=== PATIENT | male | born 1970 | race Caucasian/White ===

== ENCOUNTER 2023-03-20 17:11 | Observation (INO) | payer SELFPAY ==
[2023-03-20] MEDS ORDERED: Furosemide 40 MG/4 ML VIAL ONE (17:42)
[2023-03-20] MEDS ORDERED: Aspirin Chewable 81 MG TAB ONE (17:43)
[2023-03-20] MEDS ORDERED: Cefepime 2 GM VIAL ONE (17:47)
[2023-03-20 18:18] LABS: #Basophils 0.1 10x3/uL (0.0-0.2); #Eosinphils 0.5 10x3/uL (0.0-0.5); #Monocytes 0.8 10x3/uL (0.0-1.1); %Basophils 0.7 % (0.0-2.0); %Eosinophils 6.6 % (0.0-6.0); %Lymphocytes 26.1 % (18.0-47.0); %Monocytes 10.5 % (0.0-10.0); %Neutrophils 55.7 % (40.0-75.0); Hematocrit 44.4 % (38.8-50.0); Hemoglobin 14.2 g/dL (13.5-17.5); Mean Corpuscular Hemoglobin 27.6 pg (27.0-33.0); Mean Corpuscular Volume 86.2 fl (81.2-95.1); Mean Platelet Volume 10.9 fl (7.4-10.4); Platelet Count 246 10x3/uL (150-450); RBC Distribution Width 14.4 % (11.5-14.5); Red Blood Cell (RBC) Count 5.15 10x6/uL (4.32-5.72); White Blood Cell (WBC) Count 7.1 10x3/uL (3.5-10.5)
[2023-03-20 18:27] LABS: ALT (SGPT) 50 U/L (8-55); AST (SGOT) 33 U/L (5-34); Alkaline Phosphatase 84 U/L (40-110); Anion Gap 16 mmol/L (10-20); BUN (Urea Nitrogen) 7 mg/dL (8.4-25.7); Bilirubin, Total 0.3 mg/dL (0.2-1.2); Calc. Creatinine Clearance 0 mL/min (70-130); Calcium 8.4 mg/dL (7.8-10.44); Carbon Dioxide 24 mmol/L (22-29); Chloride 107 mmol/L (98-107); Estimated GFR 106; Globulin 2.3 g/dL (2.4-3.5); Glucose 105 mg/dL (70-105); Lipase 25 U/L (8-78); Potassium 4.6 mmol/L (3.5-5.1); Protein, Total 6.3 g/dL (6.0-8.3); Sodium 142 mmol/L (136-145)
[2023-03-20 18:33] LABS: Troponin I Less than 0.010 ng/mL (< 0.028)
[2023-03-20 18:47] LABS: Bilirubin Neg (Negative); Blood, Urine Negative (Negative); Clarity Clear (Clear); Glucose, Urine (Dipstick) Normal (Negative); Ketone, Urine Negative (Negative); Leukocyte Negative (Negative); Nitrite Negative (Negative); Protein, Urine (Dipstick) Negative (Neg-Trace); Specific Gravity, Urine 1.015 (1.005-1.030); Urobilinogen Normal mg/dL (Less than 2)
[2023-03-20 19:00] LABS: Bacteria/HPF Rare-Few HPF (None Seen); CAUTI Indications for Culture Immunosuppressed; RBC/HPF 0-3 HPF (0-3); Squamous Epithelial None Seen HPF (0-3)
[2023-03-20 19:01] LABS: Urine Culture Reflex Yes Yes; WBC/HPF 0-3 HPF (0-3)
[2023-03-20] MEDS ORDERED: Vancomycin 1 GM VIAL ONE ×2 (19:18→19:25)
[2023-03-20] MEDS ORDERED: HYDROcodone/Acetaminophen 5/325 mg Tablet PO PRN ×2 (20:03)
[2023-03-20] MEDS ORDERED: Acetaminophen 325 MG TAB PO PRN (20:03)
[2023-03-20] MEDS ORDERED: Ondansetron ODT 4 MG TAB PO PRN (20:03)
[2023-03-20] MEDS ORDERED: Hydrocortisone 1% Cream 30 GM TUBE TOP PRN (20:07)
[2023-03-21 04:21] LABS: #Basophils 0.1 10x3/uL (0.0-0.2); #Eosinphils 0.5 10x3/uL (0.0-0.5); #Monocytes 0.8 10x3/uL (0.0-1.1); #Neutrophils 5.6 10x3/uL (1.5-8.4); %Basophils 0.7 % (0.0-2.0); %Eosinophils 5.6 % (0.0-6.0); %Lymphocytes 17.8 % (18.0-47.0); %Monocytes 9.6 % (0.0-10.0); %Neutrophils 65.9 % (40.0-75.0); Hematocrit 44.5 % (38.8-50.0); Hemoglobin 14.1 g/dL (13.5-17.5); Mean Corpuscular HGB CONC 31.7 g/dL (32.0-36.0); Mean Corpuscular Hemoglobin 27.2 pg (27.0-33.0); Mean Corpuscular Volume 85.9 fl (81.2-95.1); Mean Platelet Volume 10.8 fl (7.4-10.4); Platelet Count 243 10x3/uL (150-450); RBC Distribution Width 14.4 % (11.5-14.5); Red Blood Cell (RBC) Count 5.18 10x6/uL (4.32-5.72); White Blood Cell (WBC) Count 8.5 10x3/uL (3.5-10.5)
[2023-03-21 04:27] LABS: Anion Gap 15 mmol/L (10-20); BUN (Urea Nitrogen) 8 mg/dL (8.4-25.7); CRP (Inflammatory) 3.06 mg/dL (= or < 0.5); Calc. Creatinine Clearance 199 mL/min (70-130); Carbon Dioxide 28 mmol/L (22-29); Chloride 103 mmol/L (98-107); Estimated GFR 103; Glucose 120 mg/dL (70-105); Sodium 142 mmol/L (136-145)
[2023-03-21] MEDS ORDERED: Cefepime 2 GM VIAL ONE (05:47)
[2023-03-21] MEDS: Cefepime 2 GM in Sodium Chloride 0.9% 100 ML IVPB SCH ×2 (05:49→19:37)
[2023-03-21] MEDS ORDERED: Vancomycin 1.5 GRAM/300 ML BAG 1.5 GM in Premix Bag 1 BAG IVPB SCH (07:30)
[2023-03-21] MEDS ORDERED: Vancomycin 1 GM in Premix Bag 1 BAG IVPB SCH (09:00)
[2023-03-21] MEDS: Multivitamin W/ Minerals 1 TAB PO SCH (11:32)
[2023-03-21] MEDS: Aspirin 81 mg Enteric Coated Tablet PO SCH (11:33)
[2023-03-21] MEDS: Propranolol HCl LA 80 MG CAP PO SCH (13:50)
[2023-03-21] MEDS: Vancomycin 1.5 GRAM/300 ML BAG 1.5 GM in Premix Bag 1 BAG IVPB SCH (19:59)
[2023-03-22] MEDS: Cefepime 2 GM in Sodium Chloride 0.9% 100 ML IVPB SCH (05:46)
[2023-03-22] MEDS: Vancomycin 1.5 GRAM/300 ML BAG 1.5 GM in Premix Bag 1 BAG IVPB SCH (06:20)
[2023-03-22] MEDS: Propranolol HCl LA 80 MG CAP PO SCH (09:58)
[2023-03-22] MEDS: Multivitamin W/ Minerals 1 TAB PO SCH (09:59)
[2023-03-22] MEDS: Aspirin 81 mg Enteric Coated Tablet PO SCH (09:59)
[2023-03-22 13:47] VITALS: BP 123/83; TEMP 97.6
[2023-03-22] MEDS ORDERED: Sulfameth/Trimethoprim DS 800-160mg TAB PO SCH (21:00)
[2023-03-23] MEDS ORDERED: Furosemide 20 MG TAB PO SCH (09:00)
== END 2023-03-22 14:54 | disposition home or self-care (01) ==
LOC: SUATTDRO 17:11 → CSHERS 17:11 → CSHERHOLD 19:47 → CSHTELE 03-21 09:37
PROVIDERS: ADMIT Family Medicine; ATTEND Family Medicine
DX: L03.115 Cellulitis of right lower limb (principal); L03.116 Cellulitis of left lower limb; R60.9 Edema, unspecified; I10 Essential (primary) hypertension; K21.9 Gastro-esophageal reflux disease without esophagitis; F17.200 Nicotine dependence, unspecified, uncomplicated
CPT/HCPCS: 36415; 71045; 80048; 80053; 81001; 82565; 83605; 83690; 83880; 84484; 84520; 85025; 86140; 87040; 87086; 93005; 93970; 94760; 94762; 96365; 96366; 96372; 96375; 96376; G0378; J0692; J1650; J1940; J3370; J3490